=== PATIENT | female | born 1950 | race Caucasian/White ===

== ENCOUNTER 2020-05-27 06:47 | Inpatient (IN) ==
[2020-05-27 07:19] LABS: Hematocrit 41.1 % (35.3-44.9); Hemoglobin 13.5 g/dL (11.5-15.4); Mean Corpuscular HGB Conc 32.8 g/dL (31.6-35.5); Mean Corpuscular Hemoglobin 29.6 pg (28.0-33.3); Mean Corpuscular Volume 90.1 fL (83.0-100.0); Mean Platelet Volume 9.6 fL (9.4-12.4); Platelet Count 232 K/mcL (140-400); Red Blood Count 4.56 M/mcL (3.82-4.97); Red Cell Distribution Width 13.1 % (11.5-14.5); White Blood Count 3.7 K/mcL (4.3-11.1)
[2020-05-27 07:27] LABS: Activated Partial Thrombo Time 27.3 Seconds (26.0-36.0)
[2020-05-27 07:48] LABS: BUN/Creatinine Ratio 19 (6-26); Blood Urea Nitrogen 13 mg/dL (8-23); Calcium 9.2 mg/dL (8.6-10.3); Carbon Dioxide 25 mEq/L (23-29); Chloride 105 mEq/L (98-107); Glucose 101 mg/dL (70-105); Osmolality,Calculated 288 (280-300); Potassium 3.8 mEq/L (3.5-5.1); Sodium 139 mEq/L (136-145); Troponin I < 0.03 ng/mL (< 0.04); eGFR For African Americans > 60 (> 60); eGFR For Non-African Americans > 60 (> 60)
[2020-05-27] MEDS ORDERED: Aspirin 81 MG TAB.CHEW PO STA (08:21)
[2020-05-27] MEDS ORDERED: Perflutren Lipid Microsphere 1.3 ML in 0.9 % Sodium Chloride 8.7 ML IVP PRN (11:20)
[2020-05-27] MEDS ORDERED: Naloxone 0.4 MG/ML INJ IVP PRN (11:26)
[2020-05-27] MEDS ORDERED: Mag Hydrox/Al Hydrox/Simeth 30 ML UDC PO PRN (11:26)
[2020-05-27 21:18] LABS: Bilirubin,Urine Negative (Negative); Blood,Urine Negative (Negative); Clarity,Urine Clear (Clear); Color,Urine Colorless (Yellow); Glucose,Urine (UA) Normal (Normal); Ketones,Urine Negative (Negative); Leukocyte Esterase,Urine Small (Negative); Mucus,Urine Few per lpf (None-Few); Nitrite,Urine Negative (Negative); PH,Urine 6.5 pH Units (5.0-8.0); Protein,Urine Negative (Neg-Trace); Specific Gravity,Urine 1.009 (1.010-1.025); Urobilinogen,Urine Normal (Normal); WBC,Urine 0-3 per hpf (0-3)
[2020-05-28 05:24] LABS: Hematocrit 38.3 % (35.3-44.9); Hemoglobin 12.8 g/dL (11.5-15.4); INR 1.1; Mean Corpuscular HGB Conc 33.4 g/dL (31.6-35.5); Mean Corpuscular Hemoglobin 30.7 pg (28.0-33.3); Mean Corpuscular Volume 91.8 fL (83.0-100.0); Mean Platelet Volume 10.1 fL (9.4-12.4); Platelet Count 219 K/mcL (140-400); Prothrombin Time 12.2 Seconds (9.4-12.1); Red Blood Count 4.17 M/mcL (3.82-4.97); Red Cell Distribution Width 13.2 % (11.5-14.5)
[2020-05-28 05:33] LABS: Alanine Aminotransferase 13 Units/L (7-52); Albumin 3.9 g/dL (3.5-5.7); Albumin/Globulin Ratio 1.6 (1.1-2.2); Alkaline Phosphatase 76 Units/L (34-104); Aspartate Amino Transferase 21 Units/L (13-39); BUN/Creatinine Ratio 19 (6-26); Bilirubin,Total 0.7 mg/dL (0.3-1.0); Blood Urea Nitrogen 16 mg/dL (8-23); Calcium 9.2 mg/dL (8.6-10.3); Carbon Dioxide 26 mEq/L (23-29); Chloride 106 mEq/L (98-107); Chol/HDL Ratio 2.6 (0-4.9); Cholesterol 199 mg/dL (< 200); Globulin 2.5 g/dL (2.4-3.5); Glucose 98 mg/dL (70-105); HDL Cholesterol 77 mg/dL (40-59); LDL Cholesterol,Calculated 112 mg/dL (< 100); Osmolality,Calculated 289 (280-300); Potassium 3.8 mEq/L (3.5-5.1); Sodium 139 mEq/L (136-145); Total Protein 6.4 g/dL (6.4-8.9); Triglycerides 48 mg/dL (< 150); eGFR For African Americans > 60 (> 60); eGFR For Non-African Americans > 60 (> 60)
[2020-05-28] MEDS: Ondansetron ODT 4 MG TAB.RAPDIS SL PRN (07:35)
[2020-05-28] MEDS ORDERED: Aspirin 81 MG TAB.CHEW PO SCH (09:00)
[2020-05-28 11:29] LABS: Estimated Average Glucose 117 mg/dl
[2020-05-28] MEDS: Acetaminophen 325 MG TABLET PO PRN (19:38)
[2020-05-29] MEDS: Ondansetron ODT 4 MG TAB.RAPDIS SL PRN (07:24)
[2020-05-29] MEDS ORDERED: amLODIPine 5 MG TABLET PO SCH (09:00)
[2020-05-29] MEDS: *HR* Heparin 5,000 UNIT/ML VIAL SQ SCH (17:09)
[2020-05-29] MEDS: Acetaminophen 325 MG TABLET PO PRN (23:17)
[2020-05-30] MEDS: *HR* Heparin 5,000 UNIT/ML VIAL SQ SCH (05:48)
[2020-05-30 07:34] VITALS: BP 152/83
[2020-05-30] MEDS ORDERED: amLODIPine 5 MG TABLET PO SCH (09:00)
== END 2020-05-30 11:48 | disposition home health service (06) | DRG 65 ==
LOC: 3BNU 06:47 → EMEROOARM 06:47 → 3BNU 12:14
PROVIDERS: ADMIT Family Medicine; ATTEND Family Medicine

== ENCOUNTER 2021-01-25 12:09 | Inpatient (IN) ==
[2021-01-25] MEDS ORDERED: Isovue-370 500 ML BOTTLE IVP ONE (12:20)
[2021-01-25] MEDS ORDERED: 0.9 % Sodium Chloride 1,000 ML IVC ONE (12:20)
[2021-01-25] MEDS ORDERED: Ondansetron 4 MG/2 ML VIAL IVP ONE (12:20)
[2021-01-25 12:47] LABS: Hemoglobin 13.2 g/dL (11.5-15.4); Mean Corpuscular Hemoglobin 29.9 pg (28.0-33.3); Mean Corpuscular Volume 90.7 fL (83.0-100.0); Mean Platelet Volume 10.2 fL (9.4-12.4); Platelet Count 243 K/mcL (140-400); Red Blood Count 4.41 M/mcL (3.82-4.97); Red Cell Distribution Width 13.6 % (11.5-14.5); White Blood Count 6.5 K/mcL (4.3-11.1)
[2021-01-25 12:54] LABS: INR 1.1; Prothrombin Time 12.9 Seconds (9.4-12.1)
[2021-01-25 13:02] LABS: Activated Partial Thrombo Time 27.4 Seconds (26.0-36.0)
[2021-01-25 13:06] LABS: BUN/Creatinine Ratio 12 (6-26); Blood Urea Nitrogen 9 mg/dL (8-23); Calcium 9.2 mg/dL (8.6-10.3); Carbon Dioxide 24 mEq/L (23-29); Chloride 103 mEq/L (98-107); Glucose 158 mg/dL (70-105); Osmolality,Calculated 282 (280-300); Potassium 3.7 mEq/L (3.5-5.1); Sodium 135 mEq/L (136-145); eGFR For African Americans > 60 (> 60); eGFR For Non-African Americans > 60 (> 60)
[2021-01-25 13:09] LABS: Troponin I < 0.03 ng/mL (< 0.04)
[2021-01-25] MEDS ORDERED: Naloxone 0.4 MG/ML INJ IVP PRN (15:04)
[2021-01-25] MEDS ORDERED: MOM Conc 10 ML UD.LIQ PO PRN (15:04)
[2021-01-25] MEDS ORDERED: Mag Hydrox/Al Hydrox/Simeth 30 ML UDC PO PRN (15:04)
[2021-01-26 03:59] LABS: Hematocrit 38.1 % (35.3-44.9); Hemoglobin 12.5 g/dL (11.5-15.4); Mean Corpuscular HGB Conc 32.8 g/dL (31.6-35.5); Mean Corpuscular Hemoglobin 29.9 pg (28.0-33.3); Mean Corpuscular Volume 91.1 fL (83.0-100.0); Mean Platelet Volume 10.2 fL (9.4-12.4); Platelet Count 218 K/mcL (140-400); Red Blood Count 4.18 M/mcL (3.82-4.97); Red Cell Distribution Width 13.8 % (11.5-14.5)
[2021-01-26 04:15] LABS: Alanine Aminotransferase 22 Units/L (7-52); Albumin 3.9 g/dL (3.5-5.7); Albumin/Globulin Ratio 1.6 (1.1-2.2); Alkaline Phosphatase 82 Units/L (34-104); Aspartate Amino Transferase 25 Units/L (13-39); BUN/Creatinine Ratio 14 (6-26); Bilirubin,Total 0.8 mg/dL (0.3-1.0); Blood Urea Nitrogen 11 mg/dL (8-23); Calcium 8.8 mg/dL (8.6-10.3); Carbon Dioxide 27 mEq/L (23-29); Chloride 105 mEq/L (98-107); Chol/HDL Ratio 1.9 (0-4.9); Cholesterol 116 mg/dL (< 200); Globulin 2.4 g/dL (2.4-3.5); Glucose 96 mg/dL (70-105); HDL Cholesterol 62 mg/dL (40-59); LDL Cholesterol,Calculated 44 mg/dL (< 100); Osmolality,Calculated 285 (280-300); Potassium 3.8 mEq/L (3.5-5.1); Sodium 138 mEq/L (136-145); Total Protein 6.3 g/dL (6.4-8.9); Triglycerides 49 mg/dL (< 150); eGFR For African Americans > 60 (> 60); eGFR For Non-African Americans > 60 (> 60)
[2021-01-26] MEDS: *HR* Enoxaparin 40 MG/0.4 ML SYRINGE SQ SCH (05:18)
[2021-01-26] MEDS: Aspirin Enteric Coated 81 MG Tablet PO SCH (09:12)
[2021-01-26] MEDS: Ondansetron ODT 4 MG TAB.RAPDIS SL PRN (18:56)
[2021-01-26] MEDS: Melatonin 3 MG TABLET PO PRN (21:30)
[2021-01-27] MEDS: *HR* Enoxaparin 40 MG/0.4 ML SYRINGE SQ SCH (04:59)
[2021-01-27] MEDS: Aspirin Enteric Coated 81 MG Tablet PO SCH (07:44)
[2021-01-27 10:49] LABS: Estimated Average Glucose 117 mg/dl; Hemoglobin A1C 5.7 %
[2021-01-27] MEDS: amLODIPine 5 MG TABLET PO SCH (16:28)
[2021-01-27] MEDS: Melatonin 3 MG TABLET PO PRN (21:43)
[2021-01-28] MEDS: *HR* Enoxaparin 40 MG/0.4 ML SYRINGE SQ SCH (05:06)
[2021-01-28] MEDS: amLODIPine 5 MG TABLET PO SCH (08:48)
[2021-01-28] MEDS: Ondansetron ODT 4 MG TAB.RAPDIS SL PRN (09:00)
[2021-01-29] MEDS: *HR* Enoxaparin 40 MG/0.4 ML SYRINGE SQ SCH (04:43)
[2021-01-29 07:17] VITALS: O2SAT 97
[2021-01-29] MEDS: amLODIPine 5 MG TABLET PO SCH (07:29)
[2021-01-29 13:11] LABS: Adenovirus Not Detected (Not Detect); Bordetella Pertussis Not Detected (Not Detect); Chlamydophila pneumoniae Not Detected (Not Detect); Coronavirus 229E Not Detected (Not Detect); Coronavirus HKU1 Not Detected (Not Detect); Coronavirus NL63 Not Detected (Not Detect); Coronavirus OC43 Not Detected (Not Detect); Human Metapneumovirus Not Detected (Not Detect); Human Rhinovirus/Enterovirus Not Detected (Not Detect); Influenza A Subtype 2009 H1 Not Detected (Not Detect); Influenza B Not Detected (Not Detect); Mycoplasma pneumoniae Not Detected (Not Detect); Parainfluenza Virus 1 Not Detected (Not Detect); Parainfluenza Virus 2 Not Detected (Not Detect); Parainfluenza Virus 3 Not Detected (Not Detect); Parainfluenza Virus 4 Not Detected (Not Detect); Respiratory Syncytial Virus Not Detected (Not Detect); SARS-CoV-2 Not Detected (Not Detect)
[2021-01-29 14:56] VITALS: BP 119/75; PULSE 75; TEMP 98.7
== END 2021-01-29 15:54 | DRG 65 ==
LOC: 3BNU 12:09 → EMEROOARM 12:09 → SUATTDRO 13:37 → 3BNU 14:18 → SUATTDRO 01-28 18:35
PROVIDERS: ADMIT Internal Medicine; ATTEND Nurse Practitioner